=== PATIENT | female | born 1980 | race African-American/Black ===

== ENCOUNTER 2022-07-03 09:32 | Emergency (ER) | payer MEDICAID ==
[~2022-07-03] VITALS: Ht 157.5 cm; Wt 77.0 kg
[~2022-07-03 09:32] MED LIST: CEPH500C2 PO; SULF1TAB48 PO
[2022-07-03 09:44] VITALS: BP 112/76
[2022-07-03] MEDS ORDERED: VALA100044 MT (12:55)
[2022-07-03] MEDS ORDERED: LIDO1ADH71 TOP (12:55)
[2022-07-03] MEDS ORDERED: TOPUD MT (12:55)
== END 2022-07-03 13:17 | disposition home or self-care (01) ==
LOC: ER 09:32
DX: B02.9 Zoster without complications (principal); R21 Rash and other nonspecific skin eruption; Z79.899 Other long term (current) drug therapy
CPT/HCPCS: 99281

== ENCOUNTER 2023-07-06 16:28 | Emergency (ER) | payer MEDICAID ==
[~2023-07-06] VITALS: Ht 160 cm; Wt 60.0 kg
[~2023-07-06 16:28] MED LIST changes: +AMOX1TAB16 MT; -CEPH500C2 PO; -SULF1TAB48 PO
[2023-07-06 16:39] VITALS: BP 126/74; PULSE 69; RESP 18; TEMP 98.6; O2SAT 99
== END 2023-07-06 16:40 | disposition home or self-care (01) ==
LOC: ER 16:28
DX: S93.105A Unspecified dislocation of left toe(s), initial encounter (principal); X58.XXXA Exposure to other specified factors, initial encounter; Y93.89 Activity, other specified; Y92.89 Other specified places as the place of occurrence of the external cause; Y99.8 Other external cause status
CPT/HCPCS: 28660; 99152; 99285